=== PATIENT | male | born 1955 | race Caucasian/White ===

== ENCOUNTER 2019-02-22 08:13 | Outpatient (CLI) | payer OTHER | END 2019-02-22 08:15 | disposition home or self-care (01) | LOC: SONOGRAMA 08:13 | DX: C73 Malignant neoplasm of thyroid gland (principal) ==

== ENCOUNTER 2021-08-27 07:53 | Outpatient (CLI) | payer OTHER | END 2021-08-27 07:58 | disposition home or self-care (01) | LOC: SONOGRAMA 07:53 | PROVIDERS: ATTEND Pathology Anatomic Pathology & Clinical Pathology | DX: E89.0 Postprocedural hypothyroidism (principal) ==